=== PATIENT | female | born 1980 | race African-American/Black ===

== ENCOUNTER 2021-04-27 08:32 | Emergency (ER) | payer BC ==
[~2021-04-27] VITALS: Ht 152.4 cm; Wt 81.6 kg
--- NOTE | 2021-04-27 08:45 | NUR ---
Dr Hayden at he bedside for MSE.
--- NOTE | 2021-04-27 08:51 | NUR ---
Patient eloped from facility. ER physician notified.
== END 2021-04-27 08:52 | disposition left against medical advice (07) ==
LOC: ER 08:32
DX: Z53.21 Procedure and treatment not carried out due to patient leaving prior to being seen by health care provider (principal)
CPT/HCPCS: A4663